=== PATIENT | male | born 1985 | race Caucasian/White ===

== ENCOUNTER 2022-04-23 09:54 | Emergency (ER) | payer OTHER ==
[2022-04-23] MEDS ORDERED: Sodium Chloride 0.9% 10 ML Syringe FLUSH PRN (10:00)
[2022-04-23 10:45] LABS: ANION GAP 12.3 mEq/L (7-13)
[2022-04-23] MEDS ORDERED: Iopamidol 612 MG/ML 100 ML Bottle IVPUSH ONE (11:31)
== END 2022-04-23 13:07 | disposition home or self-care (01) ==
LOC: DL.ED 09:54
DX: K80.20 Calculus of gallbladder without cholecystitis without obstruction (principal)
CPT/HCPCS: 36415; 74176; 76705; 80053; 82150; 83605; 83690; 83735; 85025; 86140; 99284; J3490